=== PATIENT | female | born 1990 | race Caucasian/White ===

== ENCOUNTER → 2016-08-28 | Outpatient (CLI) | payer SELFPAY ==
--- NOTE | 2016-08-29 15:35 | CT ---
EXAM DATE: 08/28/16 PATIENT'S AGE: 26 Patient: BROOKE ZHENG Facility: [place], [place] Site . Site : 1990 Study: CT Head [id number] 4:22:42 PM Ordering Physician: Liset Figueroa Final Report: INDICATION: migraines TECHNIQUE: CT Head without contrast. COMPARISON: None. FINDINGS: There is no sign of intracranial hemorrhage or mass effect. Ventricles and sulci are symmetric and midline. The madrid-white differentiation is preserved. No abnormal intra-axial or extra-axial fluid collection. No acute disease of the visualized paranasal sinuses and mastoid air cells. No fracture evident. No scalp hematoma/laceration. IMPRESSION: No acute intracranial process. Dictated by: Luis Schmid MD @ 08/28/2016 16:42:43 (Electronic Signature) Report Signed by Proxy. [facility] HOSPITALAshish
== END | disposition home or self-care (01) ==
LOC: MW.DI 15:49
PROVIDERS: ATTEND Family Medicine
DX: G43.909 Migraine, unspecified, not intractable, without status migrainosus (principal)
CPT/HCPCS: 70450; 70450-26

== ENCOUNTER 2017-04-05 17:38 | Emergency (ER) | payer SELFPAY ==
--- NOTE | 2017-04-05 17:59 | EDM.PDOC ---
ED HPI GENERAL MEDICAL PROBLEM - General Chief Complaint: Upper Extremity Injury/Pain Stated Complaint: CYST LT HAND Time Seen by Provider: 04/05/17 17:42 Source of Information: Reports: Patient History Limitations: Reports: No Limitations - History of Present Illness INITIAL COMMENTS - FREE TEXT/NARRATIVE: History of present illness: []Patient complains of left dorsal wrist pain. She had a ganglion cyst removed several years ago in [place] and this feels the same. She notices a lump when she flexes her wrist is very painful. She denies any trauma, numbness, tingling or fevers Review of systems: As per history of present illness and below otherwise all systems reviewed and negative. Past medical history: As per history of present illness and as reviewed below otherwise noncontributory. Surgical history: As per history of present illness and as reviewed below otherwise noncontributory. Social history: No reported history of drug or alcohol abuse. Family history: As per history of present illness and as reviewed below otherwise noncontributory. Physical exam: General: Well developed, well nourished in NAD HEENT: Atraumatic, normocephalic, pupils reactive, negative for conjunctival pallor or scleral icterus, mucous membranes moist, throat clear, neck supple, nontender, trachea midline. Lungs: Clear to auscultation, breath sounds equal bilaterally, chest nontender. Heart: S1S2, regular, negative for clicks, rubs, or JVD. Abdomen: Soft, nondistended, nontender. Negative for masses or hepatosplenomegaly. Negative for costovertebral tenderness. Pelvis: Stable nontender. Genitourinary: Deferred. Rectal: Deferred. Extremities: Atraumatic, negative for cords or calf pain. Neurovascular unremarkable. No palpable mass noted positive tenderness of the left dorsal wrist at the base of the second metacarpal. Neuro: Awake, alert, oriented. Cranial nerves II through XII unremarkable. Cerebellum unremarkable. Motor and sensory unremarkable throughout. Exam nonfocal. Diagnostics: [] Therapeutics: [] Impression: []Ganglion cyst Plan: []Follow-up hand surgery asked available appointment wear splint for comfort ibuprofen and ice wrist is much as possible Definitive disposition and diagnosis as appropriate pending reevaluation and review of above. left wrist Pain Score (Numeric/FACES): 8 - Related Data Allergies Allergy/AdvReac Type Severity Reaction Status Date / Time sulfamethoxazole Allergy Rash Verified 04/05/17 17:52 [From Bactrim] trimethoprim [From Bactrim] Allergy Rash Verified 04/05/17 17:52 Home Meds: Home Meds . 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: Neurological History: Reports: Migraines - Infectious Disease History Infectious Disease History: Reports: None - Past Surgical History GI Surgical History: Reports: Cholecystectomy Other GI Surgeries/Procedures: gall bladder removal Social & Family History - Family History Family Medical History: Noncontributory - Tobacco Use Smoking Status *Q: Former Smoker Years of Tobacco use: 5 Used Tobacco, but Quit: Yes Month Tobacco Last Used: 04/20/2014 Second Hand Smoke Exposure: No - Alcohol Use Days Per Week of Alcohol Use: 0 - Recreational Drug Use Recreational Drug Use: No Review of Systems - Review of Systems Review Of Systems: See Below (See history of present illness) ED EXAM, GENERAL - Physical Exam Exam: See Below (See history of present illness) Course - Vital Signs Last Recorded V/S: Last Vital Signs Temp 96.3 F 04/05/17 17:52 Pulse 80 04/05/17 17:52 Resp 18 04/05/17 17:52 BP 133/85 04/05/17 17:52 Pulse Ox 99 04/05/17 17:52 - Orders/Labs/Meds Orders: Active Orders 24 hr Category Date Time Status Splinting [RC] ASDIRECTED Care 04/05/17 17:54 Ordered Departure - Departure Time of Disposition: 17:57 Disposition: Home, Self-Care 01 Condition: Good Clinical Impression: Ganglion cyst of dorsum of left wrist - Discharge Information Referrals: Lotus Hutchins DO [Primary Care Provider] - Additional Instructions: The following information is given to patients seen in the emergency department who are being discharged to home. This information is to outline your options for follow-up care. We provide all patients seen in our emergency department with a follow-up referral. The need for follow-up, as well as the timing and circumstances, are variable depending upon the specifics of your emergency department visit. If you don't have a primary care physician on staff, we will provide you with a referral. We always advise you to contact your personal physician following an emergency department visit to inform them of the circumstance of the visit and for follow-up with them and/or the need for any referrals to a consulting specialist. The emergency department will also refer you to a specialist when appropriate. This referral assures that you have the opportunity for follow-up care with a specialist. All of these measure are taken in an effort to provide you with optimal care, which includes your follow-up. Under all circumstances we always encourage you to contact your private physician who remains a resource for coordinating your care. When calling for follow-up care, please make the office aware that this follow-up is from your recent emergency room visit. If for any reason you are refused follow-up, please contact the [facility] Emergency Department at and asked to speak to the emergency department charge nurse. Ice to wrist, wear splint for comfort, ibuprofen or Aleve for pain. Follow-up with hand surgery call tomorrow for next available appointment [facility] - Plastic [facility] Professional Building [address] [place] [address], [address] [place] [address] - My Orders Last 24 Hours: My Active Orders 04/05/17 17:54 Splinting [RC] ASDIRECTED - Assessment/Plan Last 24 Hours: My Active Orders 04/05/17 17:54 Splinting [RC] ASDIRECTED
[2017-04-05 18:26] VITALS: BP 130/78
== END 2017-04-05 18:10 | disposition home or self-care (01) ==
LOC: MW.ED 17:38
DX: M67.432 Ganglion, left wrist (principal); Z88.2 Allergy status to sulfonamides; Z88.1 Allergy status to other antibiotic agents; Z87.891 Personal history of nicotine dependence
CPT/HCPCS: 99283; L3908; 99282

== ENCOUNTER 2017-05-22 08:43 | Day surgery (SDC) | payer BC ==
[~2017-05-22 08:43] MED LIST: Acetaminophen/HYDROcodone 325-5 MG Tab PO PRN; Bupivacaine 0.25%/EPINEPHrine 1:200,000 10 ML SDV INJECT ONE; Bupivacaine 25%/EPINEPHrine/PF 0 ML ONE; Lactated Ringers 1,000 ML IV SCH; Lidocaine 2% 5 ML SDV ONE; Midazolam 1 MG/ML 2 ML SDV ONE; Ondansetron 4 MG/2 ML SDV ONE; Propofol 200 MG/20 ML SDV ONE; ceFAZolin 2 GM in Premix Bag 1 BAG IV ONE; fentaNYL 250 MCG/5 ML SDV ONE
--- NOTE | 2017-05-22 09:06 | PCM.PREANE ---
Preanesthetic Assessment - Anesthesia/Transfusion/Family Hx Anesthesia History: Prior Anesthesia Without Reaction Family History of Anesthesia Reaction: No Transfusion History: No Prior Transfusion(s) - Review of Systems General: No Symptoms Pulmonary: No Symptoms Cardiovascular: No Symptoms Gastrointestinal: No Symptoms Neurological: No Symptoms Other: Reports: Anxiety - Physical Assessment NPO Status Date: 05/21/17 O2 Sat by Pulse Oximetry: 96 Respiratory Rate: 16 Vital Signs: Last Vital Signs Temp 36.8 C 05/22/17 08:55 Pulse 90 05/22/17 08:55 Resp 16 05/22/17 08:55 BP 118/74 05/22/17 08:55 Pulse Ox 96 05/22/17 08:55 Height: 1.63 m Weight: 101.151 kg ASA Class: 2 Mental Status: Alert & Oriented x3 Airway Class: Mallampati = 2 Dentition: Reports: Normal Dentition ROM/Head Extension: Full Lungs: Clear to Auscultation, Normal Respiratory Effort Cardiovascular: Regular Rate, Regular Rhythm - Lab Values: Laboratory Last Values Urine HCG, Qual NEGATIVE (NEGATIVE) 05/22/17 08:45 - Allergies Allergies/Adverse Reactions: Allergies Allergy/AdvReac Type Severity Reaction Status Date / Time ammonium alum [From Carmex] Allergy cold sores Verified 05/20/17 09:39 camphor* [From Carmex] Allergy cold sores Verified 05/20/17 09:39 menthol [From Carmex] Allergy cold sores Verified 05/20/17 09:39 phenol [From Carmex] Allergy cold sores Verified 05/20/17 09:39 salicylic acid [From Carmex] Allergy cold sores Verified 05/20/17 09:39 sulfamethoxazole Allergy Rash Verified 04/05/17 17:52 [From Bactrim] trimethoprim [From Bactrim] Allergy Rash Verified 04/05/17 17:52 - Anesthesia Plan Pre-Op Medication Ordered: None - Acknowledgements Anesthesia Type Planned: General Anesthesia Pt an Appropriate Candidate for the Planned Anesthesia: Yes Alternatives and Risks of Anesthesia Discussed w Pt/Guardian: Yes Pt/Guardian Understands and Agrees with Anesthesia Plan: Yes PreAnesthesia Questionnaire - Past Health History Medical/Surgical History: Denies Medical/Surgical History Gastrointestinal History: Reports: None 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: 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 History: Reports: None Neurological History: Reports: Migraines Psychiatric History: Reports: Anxiety, Bipolar, Depression Endocrine/Metabolic History: Reports: Obesity/BMI 30+ - Infectious Disease History Infectious Disease History: Reports: None - Past Surgical History Head Surgeries/Procedures: Reports: None GI Surgical History: Reports: Cholecystectomy Other GI Surgeries/Procedures: gall bladder removal 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 Surgical History: Reports: Other (See Below) Other 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 Surgeries/Procedures:: exc of left ganglion cyst - SUBSTANCE USE Smoking Status *Q: Former Smoker Tobacco Use Within Last Twelve Months: Cigarettes Second Hand Smoke Exposure: No Days Per Week of Alcohol Use: 0 Recreational Drug Use History: No - HOME MEDS Home Medications: Home Meds ClonazePAM [KlonoPIN] 0.5 mg PO ASDIRECTED PRN 05/20/17 [History] Diclofenac Sodium [Voltaren] 75 mg PO BID 05/20/17 [History] - CURRENT (IN HOUSE) MEDS Current Meds: Current Medications Hydrocodone Bitart/Acetaminophen ([place] 325-5 Mg) 1 - 2 tab PO Q4H PRN PRN Reason: Pain Lactated Ringer's (Ringers, Lactated) 1,000 mls @ 500 mls/hr IV .BOLUS KEVON Last Admin: 05/22/17 08:58 Dose: 500 mls/hr Discontinued Medications Bupivacaine HCl/Epinephrine Bitart (Marcaine 0.25%/Epinephrine 1:200,000) 10 ml INJECT ONETIME ONE Stop: 05/22/17 08:01 Fentanyl (Sublimaze) Confirm Administered Dose 250 mcg .ROUTE .STK-MED ONE Stop: 05/22/17 07:36 Cefazolin Sodium/Dextrose 2 gm (/ Premix) 50 mls @ 100 mls/hr IV ONETIME ONE Stop: 05/22/17 08:29 Bupivacaine HCl/Epinephrine Bitart (Sensorc Mpf 0.25%-Epi 1:[id number]) Confirm Administered Dose 30 mls @ as directed .ROUTE .STK-MED ONE Stop: 05/22/17 07:33 Lidocaine (Xylocaine-Mpf 2%) Confirm Administered Dose 5 ml .ROUTE .STK-MED ONE Stop: 05/22/17 07:36 Midazolam HCl (Versed 1 Mg/Ml) Confirm Administered Dose 2 mg .ROUTE .STK-MED ONE Stop: 05/22/17 07:36 Ondansetron HCl (Zofran) Confirm Administered Dose 4 mg .ROUTE .STK-MED ONE Stop: 05/22/17 07:36 Propofol (Diprivan 20 Ml) Confirm Administered Dose 200 mg .ROUTE .STK-MED ONE Stop: 05/22/17 07:36
[2017-05-22] MEDS ORDERED: Midazolam 1 MG/ML 2 ML SDV ONE (09:53)
[2017-05-22] MEDS ORDERED: Bupivacaine 25%/EPINEPHrine/PF 30 ML ONE (10:03)
[2017-05-22] MEDS ORDERED: fentaNYL 100 MCG/2 ML SDV IVPUSH PRN (10:46)
--- NOTE | 2017-05-22 11:45 | PCM.POSTAN ---
POST ANESTHESIA ASSESSMENT - MENTAL STATUS Mental Status: Alert, Oriented - RESPIRATORY Respiratory Status: Respiratory Rate WNL, Airway Patent, O2 Saturation Stable - CARDIOVASCULAR CV Status: Pulse Rate WNL, Blood Pressure Stable - GASTROINTESTINAL GI Status: No Symptoms - PAIN Pain Score: 9 (Pt is completely numb and has received adequate pain medication) - POST OP HYDRATION Hydration Status: Adequate & Stable - OBSERVATIONS Free Text/Narrative:: No anesthesia complications.
[2017-05-22 12:44] VITALS: BP 116/72
--- NOTE | 2017-05-22 12:48 | PCM48HPAN ---
Post Anesthesia Note - EVALUATION WITHIN 48HRS OF ANESTHETIC Vital Signs in Normal Range: Yes Patient Participated in Evaluation: Yes Respiratory Function Stable: Yes Airway Patent: Yes Cardiovascular Function Stable: Yes Hydration Status Stable: Yes Pain Control Satisfactory: Yes Nausea and Vomiting Control Satisfactory: Yes Mental Status Recovered: Yes
--- NOTE | 2017-05-22 13:24 | PCM.OPNOTE ---
- General Post-Op/Procedure Note Date of Surgery/Procedure: 05/22/17 Operative Procedure(s): excision of left dorsal Condition: Good Free Text/Narrative:: Intake & Output 05/21/17 05/22/17 05/22/17 23:59 07:59 15:59 Intake Total 950 Balance 950 [id number]
--- NOTE | 2017-05-23 00:37 | OR ---
SURGEON: LASHON STEVENSON MD DATE OF PROCEDURE: 05/22/2017 PREOPERATIVE DIAGNOSIS: Recurrent left dorsal wrist ganglion. POSTOPERATIVE DIAGNOSIS: Recurrent left dorsal wrist ganglion. PROCEDURE: Excision of recurrent left dorsal wrist ganglion. INDICATIONS: Ms. Perez is a 26-year-old female with a recurrent left dorsal wrist ganglion. She has significant pain from this and is unable to move the left wrist significantly. She has been wearing a splint and has been compromised by this. We discussed expectations and need for appropriate expectations. Risks were including, but not limited to bleeding, infection, damage to underlying or overlying structures, possible need for future interventions, and possible scarring. PROCEDURE IN DETAIL: After informed consent was obtained and placed on the chart, the patient was brought to the operating theater and laid in supine position. After adequate general anesthesia was obtained, the arm was exsanguinated after local infiltration, and the tourniquet was insufflated to 200 mmHg. A 15 blade was used to dissect through the skin, subcutaneous tissues, and circumferentially the Littler scissor was used to dissect around the ganglion itself. The stalk located, transected and cauterized and the joint capsule was repaired with 4-0 Monocryl in a horizontal mattress fashion. The area was copiously irrigated and the skin was closed with a deep 4-0 Monocryl in a running subcuticular for the skin. This wound was dressed with Steri-Strips. The patient was dressed with fluff gauze and a short-arm wrist cock-up splint. The patient tolerated this well. All counts and needles were correct at the end of the case. FOLLOWUP INSTRUCTIONS: The patient will see us in 10 to 14 days sooner if any problems, questions, or concerns. She was given a prescription for pain control and discussed pain expectations again with her. SHAKIR / ANGELICA /[id number]
== END 2017-05-22 12:40 | disposition home or self-care (01) ==
LOC: MW.SDS 08:43
PROVIDERS: ATTEND Plastic Surgery
DX: M67.432 Ganglion, left wrist (principal); F41.9 Anxiety disorder, unspecified; F31.9 Bipolar disorder, unspecified; E66.9 Obesity, unspecified; G43.909 Migraine, unspecified, not intractable, without status migrainosus; Z88.1 Allergy status to other antibiotic agents; Z91.048 Other nonmedicinal substance allergy status; Z79.899 Other long term (current) drug therapy; Z87.891 Personal history of nicotine dependence; Z88.2 Allergy status to sulfonamides; Z88.8 Allergy status to other drugs, medicaments and biological substances; Z68.38 Body mass index [BMI] 38.0-38.9, adult
CPT/HCPCS: 25112; 81025; 88304; A9270; J0690; J2250; J2405; J3010; J7120; 01810; J2704